=== PATIENT | female | born 1970 | race Caucasian/White ===

== ENCOUNTER 2021-09-03 01:30 | Emergency (ER) | payer BC, OTHER ==
[~2021-09-03] VITALS: Ht 170.2 cm; Wt 86.2 kg
[2021-09-03 02:00] VITALS: BP 163/85
[2021-09-03] MEDS ORDERED: MORPHINE SULFATE 4 MG/ML SYR/VIAL IV ONE (02:00)
[2021-09-03] MEDS ORDERED: ONDANSETRON HCL 4 MG/2 ML VIAL IV ONE (02:00)
== END 2021-09-03 02:50 | disposition left against medical advice (07) ==
LOC: EDBD 01:30 → ER 01:34
DX: M54.50 Low back pain, unspecified (principal); Z53.21 Procedure and treatment not carried out due to patient leaving prior to being seen by health care provider
CPT/HCPCS: J2270; J2405